=== PATIENT | female | born 1945 | race Caucasian/White ===

== ENCOUNTER 2017-04-06 11:29 | Emergency (ER) | payer OTHER ==
[~2017-04-06] VITALS: Ht 157.5 cm; Wt 64.9 kg
[~2017-04-06 11:29] MED LIST: AMLODIPINE-BENA1 CAP; CATAFLAM50 MG; CIMETIDINE400 MG; FLEXERIL10 MG; GABAPENTIN100 MG; INDERAL LA80 MG; LETROZOLE2.5 MG; REGLAN5 MG/5 ML; TEKTURNA150 MG; [UNRECOGNIZED DRUG - REMARK]
== END 2017-04-06 19:55 | disposition home or self-care (01) ==
LOC: ER 11:29
DX: J09.X2 Influenza due to identified novel influenza A virus with other respiratory manifestations (principal)